=== PATIENT | female | born 1985 | race Caucasian/White ===

== ENCOUNTER → 2021-11-19 14:19 | Outpatient (CLI) | payer OTHER, SELFPAY ==
--- NOTE | ~2021-11-19 | XR_ITS ---
XR finger 5th RT min 2V DATE: 11/19/2021 15:01 INDICATION: Injury TECHNIQUE: 4 views COMPARISON: None FINDINGS: There is subacute or chronic fracture deformity of the base of the middle phalanx of the fi fth digit. No acute fracture or dislocation. IMPRESSION: Subacute or old fracture of base of middle phalanx of fifth digit Reviewed, dictated and finalized at location A.
== END ==
PROVIDERS: PCP Internal Medicine Pulmonary Disease; Visit Provider Internal Medicine Pulmonary Disease
DX: S69.81XA Other specified injuries of right wrist, hand and finger(s), initial encounter (principal)
CPT/HCPCS: 73140